=== PATIENT | male | born 1990 | race Caucasian/White ===

== ENCOUNTER 2021-02-24 23:00 | Inpatient (IN) ==
[2021-02-25 01:04] LABS: ABS Lymphocytes 1.5 10^3/ul (1.0-4.8); ABS Monocytes 0.6 10^3/ul (0-0.8); ABS Neutrophils 3.9 10^3/ul (1.5-7.7); Eosinophil % 0.5 %; Hematocrit 43 % (42-52); Hemoglobin 14.4 g/dL (14.0-18.0); Lymphocyte % 23.9 %; Mean Corpuscular HGB Conc 33 g/dL (31-36); Mean Corpuscular Hemoglobin 31 pg (27-31); Mean Corpuscular Volume 92 fL (80-94); Mean Platelet Volume 7.4 fL (7.4-10.4); Nucleated Red Blood Cells % 0.1; Platelet Count 308 10^3/uL (150-450); Red Cell Distribution Width 14 % (10-15); White Blood Count 6.1 10^3/uL (3.5-10.8)
[2021-02-25 01:13] LABS: Urine Appearance Turbid; Urine Bilirubin Negative (Negative); Urine Blood Negative (Negative); Urine Color Yellow; Urine Glucose Negative (Negative); Urine Ketones Negative (Negative); Urine Nitrite Negative (Negative); Urine Protein Negative (Negative); Urine Specific Gravity 1.018 (1.002-1.030); Urine Urobilinogen Negative (Negative)
[2021-02-25 01:20] LABS: ALT 15 U/L (7-52); AST 15 U/L (13-39); Albumin 4.6 g/dL (3.2-5.2); Albumin/Globulin Ratio 1.8 (1-3); Alkaline Phosphatase 55 U/L (35-149); Anion Gap 5 mmol/L (2-11); Blood Urea Nitrogen 13 mg/dL (6-24); CO2 Carbon Dioxide 31 mmol/L (22-32); Calcium 9.5 mg/dL (8.6-10.3); Chloride 102 mmol/L (101-111); Globulin 2.6 g/dL (2-4); Glucose 84 mg/dL (70-100); Potassium 4.2 mmol/L (3.5-5.0); Sodium 138 mmol/L (135-145); Total Protein 7.2 g/dL (6.4-8.9); eGFR CKD-EPI 125.6 (>60)
[2021-02-25 01:25] LABS: Urine Benzodiazepine Screen None Detected (None Detect); Urine Cannabinoids Screen Presumptive Positive (None Detect); Urine Opiates Screen None Detected (None Detect)
[2021-02-25 02:10] LABS: Acetaminophen < 15 mcg/mL; Alcohol, S < 13 mg/dL (<13); Salicylate < 2.50 mg/dL (<30)
[2021-02-25 02:26] LABS: TSH Ultra Thyroid Stim Horm 1.55 mcIU/mL (0.34-5.60)
[2021-02-25] MEDS ORDERED: Al Hydrox/Mg Hydrox/Simet LIQ 30 ML UDC PO PRN (06:52)
[2021-02-25] MEDS ORDERED: Nicotine GUM 2MG FRUIT FLAVOR PO PRN (07:00)
[2021-02-25] MEDS: Vitamin THERAPEUTIC TAB PO SCH (11:34)
[2021-02-25] MEDS: Nicotine PATCH 21 MG/24 HR PATCH TRANSDERM SCH (11:34)
[2021-02-26] MEDS: Nicotine PATCH 21 MG/24 HR PATCH TRANSDERM SCH (11:26)
[2021-02-26] MEDS: Vitamin THERAPEUTIC TAB PO SCH (11:26)
[2021-02-26] MEDS ORDERED: risperiDONE-M 1 mg Oradis TAB ONE (13:54)
[2021-02-26] MEDS: risperiDONE-M 1 mg Oradis TAB PO ONE ×2 (14:02→17:47)
[2021-02-27] MEDS: Nicotine PATCH 21 MG/24 HR PATCH TRANSDERM SCH ×3 (09:28→12:17)
[2021-02-27] MEDS: Vitamin THERAPEUTIC TAB PO SCH ×2 (09:28→12:16)
[2021-02-28 08:09] LABS: HDL Cholesterol 79.1 mg/dL
[2021-02-28] MEDS: Vitamin THERAPEUTIC TAB PO SCH (10:06)
[2021-02-28] MEDS: Nicotine PATCH 21 MG/24 HR PATCH TRANSDERM SCH (10:07)
[2021-02-28] MEDS: OLANzapine 5 mg TAB*ODT PO PRN (10:08)
[2021-02-28] MEDS: Buprenorp/Nalox 8-2 MG FILM SL FILM SCH (13:29)
[2021-03-01 08:17] VITALS: BP 106/74
[2021-03-01] MEDS: Vitamin THERAPEUTIC TAB PO SCH (08:24)
[2021-03-01] MEDS: Buprenorp/Nalox 8-2 MG FILM SL FILM SCH (08:24)
[2021-03-01] MEDS: OLANzapine 5 mg TAB*ODT PO PRN (10:25)
== END 2021-03-01 11:49 | disposition home or self-care (01) | DRG 776 ==
LOC: ED 23:00 → BSU 02-25 07:08
PROVIDERS: ADMIT Psychiatry & Neurology Psychiatry; ATTEND Psychiatry & Neurology Psychiatry